=== PATIENT | male | born 1990 | race Caucasian/White ===

== ENCOUNTER 2018-09-14 08:11 | Day surgery (SDC) | payer OTHER ==
[2018-09-14] MEDS ORDERED: FENTAnyl 50 MCG/ML VIAL (10:24)
[2018-09-14] MEDS ORDERED: CEFAZOLIN 1 GM INJ (10:25)
[2018-09-14] MEDS ORDERED: LIDOCAINE 2% (SDV) 5 ML INJ (10:25)
[2018-09-14] MEDS ORDERED: PROPOFOL 20 ML (10:25)
[2018-09-14] MEDS ORDERED: BUPIVACAINE 0.25%/EPI (SDV) 30 ML INJ (10:26)
[2018-09-14] MEDS ORDERED: OXYCODONE/ACETAMINOPHEN (5/325) TAB PO ×2 (10:30)
[2018-09-14] MEDS ORDERED: FENTAnyl 50 MCG/ML VIAL IV ×2 (10:30)
[2018-09-14] MEDS ORDERED: ONDANSETRON 4 MG INJ (11:22)
[2018-09-14] MEDS ORDERED: DEXAMETHASONE 4 MG/ML 5 ML INJ (11:22)
[2018-09-14] MEDS ORDERED: METOCLOPRAMIDE 10 MG INJ (11:22)
[2018-09-14] MEDS ORDERED: HYDROCODONE/APAP (5/325) TAB PO (12:00)
[2018-09-14] MEDS: MEPERIDINE 25 MG INJ IV (12:13)
[2018-09-14] MEDS: FENTAnyl 50 MCG/ML VIAL IV (12:38)
[2018-09-14] MEDS: ONDANSETRON 4 MG INJ IV (13:09)
== END 2018-09-14 13:47 | disposition home or self-care (01) ==
LOC: SDS 08:11
DX: L72.11 Pilar cyst (principal)
CPT/HCPCS: 14021; 88307